=== PATIENT | male | born 1970 | race Caucasian/White ===

== ENCOUNTER 2018-11-02 08:41 | Emergency (ER) | payer MEDICARE ==
[~2018-11-02] VITALS: Ht 180.3 cm; Wt 87.7 kg
[2018-11-02 08:43] VITALS: Ht 180.3 cm; Wt 87.7 kg
[2018-11-02 09:24] LABS: BASOPHILS 0.3 % (0-2); EOSINOPHILS 2.6 % (0-7); HEMOGLOBIN 16.1 g/dL (13.5-17.5); IMMATURE GRANULOCYTES 0.1 % (0-5); LYMPHOCYTES 15.7 % (15-50); MCHC 34.3 g/dL (31.0-37.0); MCV 87.5 fL (80.0-100.0); MEAN PLATELET VOLUME 10.7 fL (7.4-10.4); MONOCYTES 10.6 % (2-11); NEUTROPHILS 70.7 % (40-80); PLATELET COUNT 170 10x3/uL (130-400); RBC 5.37 10x6/uL (4.20-6.10); RDW 15.2 % (11.5-14.5); WBC 7.7 10x3/uL (4.8-10.8)
[2018-11-02 09:34] LABS: ALBUMIN 3.4 g/dL (3.4-5.0); ANION GAP 12.2 mmol/L (8-16); BILIRUBIN - TOTAL 0.69 mg/dL (0.2-1.3); CALCIUM 8.9 mg/dL (8.5-10.1); CARBON DIOXIDE 25.7 mmol/L (21.0-32.0); CREATININE - SERUM 1.3 mg/dL (0.6-1.3); MAGNESIUM - SERUM 2.2 mg/dL (1.8-2.4); POTASSIUM - SERUM 3.9 mmol/L (3.5-5.1); PROTEIN - SERUM 6.6 g/dL (6.4-8.2)
--- NOTE | 2018-11-02 09:43 | NUR ---
DR. ZHOU NOTIFIED AND REVIEWED PT'S BEHAVIOR AND ASSESSMENT RESULTS. PT IS A LOW RISK PER DR. ZHOU. DR. ZHOU STATED TO GIVE RESOURCES TO PT AT THE TIME OF DISCHARGE. NO FURTHER ORDERS AT THIS TIME. RESOURCES REVIEWED WITH PT AND HE VERBALIZED UNDERSTANDING.
[2018-11-02 10:21] LABS: UDS - AMPHET POSITIVE QUAL (NEGATIVE); UDS - BARB NEGATIVE QUAL (NEGATIVE); UDS - BENZO NEGATIVE QUAL (NEGATIVE); UDS - COCAINE NEGATIVE QUAL (NEGATIVE); UDS - OPIATE NEGATIVE QUAL (NEGATIVE); UDS - PCP NEGATIVE QUAL (NEGATIVE); UDS - THC NEGATIVE QUAL (NEGATIVE)
[2018-11-02 10:29] LABS: APPEARANCE CLEAR (CLEAR); COLOR YELLOW (YELLOW); SPECIFIC GRAVITY 1.025 (1.005-1.020)
[2018-11-02 10:30] LABS: BACTERIA FEW /hpf (NONE SEEN); BILIRUBIN NEGATIVE (NEGATIVE); EPITHELIAL CELLS RARE /hpf (0-5); GLUCOSE NEGATIVE (NEGATIVE); KETONE NEGATIVE (NEGATIVE); NITRITE NEGATIVE (NEGATIVE); PROTEIN NEGATIVE (NEGATIVE); UROBILINOGEN NORMAL (NORMAL); WHITE CELLS - URINE OCC /hpf (0-5)
[2018-11-02] MEDS ORDERED: VISTARIL50 MG PO (11:04)
[2018-11-02 11:36] VITALS: BP 118/77
== END 2018-11-02 11:30 | disposition home or self-care (01) ==
LOC: D.ER 08:41
PROVIDERS: Family Medicine
DX: F15.980 Other stimulant use, unspecified with stimulant-induced anxiety disorder (principal); F15.982 Other stimulant use, unspecified with stimulant-induced sleep disorder

== ENCOUNTER 2018-11-15 16:48 | Emergency (ER) | payer MEDICARE ==
[~2018-11-15] VITALS: Ht 177.8 cm; Wt 87.7 kg
[~2018-11-15 16:48] MED LIST: VISTARIL50 MG PO
[2018-11-15 16:54] VITALS: Ht 177.8 cm; Wt 87.7 kg
[2018-11-15 18:16] VITALS: BP 101/62
== END 2018-11-15 18:44 | disposition home or self-care (01) ==
LOC: D.ER 16:48
DX: K42.9 Umbilical hernia without obstruction or gangrene (principal)

== ENCOUNTER 2018-11-23 15:03 | Emergency (ER) | payer MEDICARE ==
[~2018-11-23] VITALS: Ht 177.8 cm; Wt 87.7 kg
--- NOTE | 2018-11-23 15:44 | NUR ---
DR. ZHOU NOTIFIED AND REVIEWED PT'S BEHAVIOR AND ASSESSMENT RESULTS. PT IS A LOW RISK PER DR. ZHOU. DR. ZHOU STATED TO GIVE RESOURCES TO PT AT THE TIME OF DISCHARGE. NO FURTHER ORDERS AT THIS TIME. RESOURCES REVIEWED WITH PT AND HE VERBALIZIED UNDERSTANDING.
[2018-11-23 15:50] LABS: BASOPHILS 0.3 % (0-2); HEMATOCRIT 41.8 % (42.0-54.0); HEMOGLOBIN 14.4 g/dL (13.5-17.5); IMMATURE GRANULOCYTES 0.2 % (0-5); MCH 30.3 pg (26.0-34.0); MCHC 34.4 g/dL (31.0-37.0); MCV 87.8 fL (80.0-100.0); MEAN PLATELET VOLUME 10.6 fL (7.4-10.4); MONOCYTES 6.2 % (2-11); NEUTROPHILS 59.3 % (40-80); RBC 4.76 10x6/uL (4.20-6.10); RDW 14.7 % (11.5-14.5)
[2018-11-23 16:00] LABS: PLATELET COUNT 260 10x3/uL (130-400)
[2018-11-23 16:05] LABS: ALBUMIN 3.1 g/dL (3.4-5.0); ANION GAP 11.8 mmol/L (8-16); BILIRUBIN - TOTAL 0.21 mg/dL (0.2-1.3); CARBON DIOXIDE 27.3 mmol/L (21.0-32.0); CREATININE - SERUM 1.5 mg/dL (0.6-1.3); POTASSIUM - SERUM 4.1 mmol/L (3.5-5.1); PROTEIN - SERUM 6.3 g/dL (6.4-8.2)
[2018-11-23] MEDS ORDERED: FLUTICASONE PRO16 GM NASAL (16:15)
[2018-11-23] MEDS ORDERED: AUGMENTIN 875-11 TAB PO (16:15)
[2018-11-23 16:24] VITALS: BP 104/68
== END 2018-11-23 16:24 | disposition home or self-care (01) ==
LOC: D.ER 15:03
PROVIDERS: Family Medicine
DX: J01.90 Acute sinusitis, unspecified (principal); Z72.51 High risk heterosexual behavior

== ENCOUNTER 2018-11-28 06:15 | Day surgery (SDC) | payer MEDICARE ==
[~2018-11-28] VITALS: Ht 177.8 cm; Wt 87.5 kg
[~2018-11-28 06:15] MED LIST changes: +AUGMENTIN 875-11 TAB PO; +FLUTICASONE PRO16 GM NASAL
[2018-11-28 06:48] VITALS: BP 113/79; Ht 177.8 cm; Wt 87.5 kg
--- NOTE | 2018-11-28 06:55 | NUR ---
UPON SUICIDE RISK SCREENING, PT HAS ANSWERED IN A WAY THAT REQUIRED ME TO CALL GAMING DIRECTOR. BEHAVIORAL NURSE WILL EVALUATE PT SOON.
--- NOTE | 2018-11-28 07:28 | NUR ---
BEHAVIORAL CONSULT HAS NOT ARRIVED TO EVAULATE PT. CALLED [facility]AD [employer]IPPER AGAIN TO INFORM HER. SHE SAID TO CALL BACK AFTER PT IS FINISHED WITH [facility]. TRANSPORTER ABOUT TO TAKE PT TO [facility].
[2018-11-28] MEDS ORDERED: HYDROCODON-ACE1 EAC7 PO (08:45)
--- NOTE | 2018-11-28 09:05 | NUR ---
PT HAS CONSTANT RESTLESNESS. ANESTHESIA VOICED HE WAS THIS WAY BEFORE SURGERY. PT DOES HAVE HISTORY OF CURRENT METH USE. IT IS VERY HARD TO ASSESS BLODD PRESSURE DUE TO CONSTANT MOVING. PRESSURE RIGHT NOW IS 144/98 AFTER CONSTISTINLY TELLING THE PT TO HOLD STILL. IT HAS TAKEN ME 5 PRESSURE READING TO OBTAIN THIS ONE. ANESTHESIA WAS NOTIFIED AND VOICED "ITS OK, THIS IS CLOSE TO HIS BASELINE BP, JUST TRY TO CONTINUE TO MONITOR".
--- NOTE | 2018-11-28 09:40 | NUR ---
0935 FL DIET SERVED.
--- NOTE | 2018-11-28 10:40 | NUR ---
NURSE HERE FOR SUICIDE EVAL. HISTORY OF BIPOLAR AND PT STATED HE HAD AN APT TO GET BACK ON HIS MEDICATION
--- NOTE | 2018-11-28 10:41 | NUR ---
1025 INSTRUCTIONS GIVEN TO PT AND ABDOMINAL BINDER TO BE PLACED ON DISCHARGE
--- NOTE | 2018-11-28 10:56 | NUR ---
PT DENIES SUICIDAL IDEATION BUT DID ATTEMPT SUICIDE IN 2016. PT LIVES IN A PRISON AND SEES A DOCTOR FOR HIS MEDICATION FOR HIS BIPOLAR AND SCHIZOPHRENIA. PT IS UPSET OVER HIS ROOMMATE AND HER "SEXUAL PARTNERS". RESOURCES GIVEN AND REVIEWED WITH THE PT. PT VERBALIZED UNDERSTANDING OF EDUCATION. REVIEWED COPING SKILLS WITH PT AND HOW TO DEAL WITH HIS ROOMMATE. SPOKE ABOUT TRYING TO CHANGE ROOMS. DR. ZHOU NOTIFIED AND AGREES WITH ASSESSMENT.
--- NOTE | 2018-11-28 12:00 | NUR ---
1130 PT ASSISTED UP AND VOIDED IN BATHROOM 1200 IV REMOVED AND DRESSING APPLIED 1200 CALLED SSEVERAL TIMES TO PSYCH DEPT TO SEE IF PT IS CLEARED TO GO HOME.
--- NOTE | 2018-11-28 12:35 | NUR ---
1130 IV REMOVED 1230 PT DISCHARGED
== END 2018-11-28 12:30 | disposition home or self-care (01) ==
LOC: D.OPS 06:15 → D.PAN 09:30 → D.OPS 12:30
PROVIDERS: ATTEND Surgery
DX: K43.6 Other and unspecified ventral hernia with obstruction, without gangrene (principal); Z01.812 Encounter for preprocedural laboratory examination

== ENCOUNTER 2019-07-23 15:04 | Emergency (ER) | payer MEDICARE ==
[~2019-07-23] VITALS: Ht 152.4 cm; Wt 86.4 kg
[~2019-07-23 15:04] MED LIST changes: +HYDROCODON-ACE1 EAC7 PO
[2019-07-23 15:19] VITALS: Ht 152.4 cm; Wt 86.4 kg
[2019-07-23 15:49] LABS: BASOPHILS 0.4 % (0-2); EOSINOPHILS 1.6 % (0-7); HEMATOCRIT 54.7 % (42.0-54.0); IMMATURE GRANULOCYTES 0.5 % (0-5); LYMPHOCYTES 21.8 % (15-50); MCH 31.3 pg (26.0-34.0); MCHC 32.9 g/dL (31.0-37.0); MCV 95.1 fL (80.0-100.0); MEAN PLATELET VOLUME 11.1 fL (7.4-10.4); MONOCYTES 6.6 % (2-11); NEUTROPHILS 69.1 % (40-80); PLATELET COUNT 220 10x3/uL (130-400); RBC 5.75 10x6/uL (4.20-6.10); RDW 13.5 % (11.5-14.5)
[2019-07-23 16:01] LABS: INR 0.96 (0.85-1.17); PROTIME 12.7 SECONDS (11.6-15.0)
[2019-07-23 16:02] LABS: APTT 29.4 SECONDS (22.8-39.4)
[2019-07-23 16:15] LABS: CALC OSMOLALITY 284 mosm/kg (275-300); CALCIUM 9.1 mg/dL (8.5-10.1); CARBON DIOXIDE 23.3 mmol/L (21.0-32.0); CHLORIDE - SERUM 105 mmol/L (98-107); CREATININE - SERUM 1.2 mg/dL (0.6-1.3); GLUCOSE 84 mg/dL (74-106); SODIUM 141 mmol/L (136-145); UREA NITROGEN 26 mg/dL (7-18); eGFR NON AFRICAN AMERICAN 69 mL/min (90-120)
[2019-07-23 16:31] LABS: ALKALINE PHOSPHATASE 80 U/L (30-120); ALT (SGPT) 33 U/L (10-68); BILIRUBIN - TOTAL 0.28 mg/dL (0.2-1.3); CKMB 1.8 U/L (0.0-3.6); CREATINE KINASE 78 UL (21-232); PRO BNP 77 pg/mL (0-125); PROTEIN - SERUM 7.4 g/dL (6.4-8.2); TROPONIN-I < 0.017 ng/mL (0.000-0.060)
[2019-07-23] MEDS ORDERED: MEDROL DOSE PACK4 MG PO (18:47)
[2019-07-23] MEDS ORDERED: ZPAK PO (18:47)
[2019-07-23] MEDS ORDERED: MUCINEX DM ER1 EAC1 PO (18:47)
[2019-07-23 18:58] VITALS: BP 129/76
== END 2019-07-23 19:05 | disposition home or self-care (01) ==
LOC: D.ER 15:04
PROVIDERS: Family Medicine
DX: J40 Bronchitis, not specified as acute or chronic (principal); R05 Cough; Z72.0 Tobacco use; R09.89 Other specified symptoms and signs involving the circulatory and respiratory systems; R07.9 Chest pain, unspecified